=== PATIENT | female | born 1995 | race Hispanic/Latino ===

== ENCOUNTER 2019-12-12 08:26 | Inpatient (IN) | payer BC, MEDICAID ==
[~2019-12-12] VITALS: Ht 154.9 cm; Wt 83.0 kg
[2019-12-12] MEDS: LACTATED RINGERS 1000ML 1,000 ML IV PRN ×2 (09:24→13:59)
[2019-12-12] MEDS ORDERED: OXYTOCIN 10 USP UNITS/ML 20 UNIT in LACTATED RINGERS 1000ML 1,000 ML IV SCH (09:30)
[2019-12-12] MEDS ORDERED: OXYTOCIN-LR 20 UNITS/1000 ML 1,000 ML IV SCH ×2 (09:30→18:15)
[2019-12-12] MEDS ORDERED: FENTANYL CITRATE PF 50 MCG/1 ML 2ML VIAL ONE (13:45)
[2019-12-12] MEDS ORDERED: ACETAMINOPHEN-CODEINE 300/30MG TAB PO PRN (18:15)
[2019-12-12] MEDS ORDERED: WITCH HAZEL 1 PAD TP PRN (18:15)
[2019-12-12] MEDS ORDERED: MEASLES/MUMPS/RUBELLA VACCINE, LIVE 0.5 ML/VIAL SQ PRN (18:15)
[2019-12-12] MEDS ORDERED: ACETAMINOPHEN 325 MG TAB PO PRN (18:15)
[2019-12-12] MEDS ORDERED: LANOLIN 30GM OINTMENT TP PRN (18:15)
[2019-12-12] MEDS ORDERED: BENZOCAINE/LANOLIN/ALOE VERA 60 ML AEROSOL TP PRN (18:15)
[2019-12-12] MEDS ORDERED: DIPH,PERTUSS(ACELL),TET VAC/PF 0.5 ML VIAL IM PRN (18:15)
--- NOTE | 2019-12-12 20:35 | NUR ---
Patient received from Labor & Delivery; Patient came in via wheelchair accompanied by Inocencia Galaviz RN & , she has an IV of LR with 20 units Pitocin regulated at 125 ml/hour. Call light given, Plan of Care discussed with patient & , they both verbalizes understanding.
[2019-12-12] MEDS: DOCUSATE SODIUM 100 MG CAP PO SCH (20:41)
[2019-12-12] MEDS: IBUPROFEN 600 MG TABLET PO PRN (20:42)
[2019-12-12 20:50] VITALS: BP 132/74; PULSE 69; RESP 18; TEMP 98.1
[2019-12-12 23:47] VITALS: BP 108/58; PULSE 68; RESP 18; TEMP 98.3
[2019-12-13 03:55] VITALS: BP 123/71; PULSE 78; RESP 18; TEMP 97.9
[2019-12-13 07:19] VITALS: BP 116/71; PULSE 75; RESP 18; TEMP 97.8
--- NOTE | 2019-12-13 07:45 | NUR ---
DR. TRENT ROUNDED AND DISCHARGED PATIENT TO HOME. PATIENT STABLE AND DENIES ANY PROBLEMS.
[2019-12-13] MEDS: DOCUSATE SODIUM 100 MG CAP PO SCH (09:14)
[2019-12-13] MEDS: IBUPROFEN 600 MG TABLET PO PRN (09:16)
[2019-12-13 11:41] VITALS: BP 113/64; PULSE 63; RESP 18; TEMP 98
--- NOTE | 2019-12-13 15:00 | NUR ---
DISCHARGE INSTRUCTIONS GIVEN AND PATIENT VERBALIZED UNDERSTANDING INSTRUCTIONS GIVEN AND NEED TO TAKE MOTRIN OVER THE COUNTER NEEDED FOR PAIN. DOSAGE AND FREQUENCY EXPLAINED AND VERBALIZED UNDERSTANDING.
[2019-12-13 16:48] VITALS: BP 132/91; PULSE 70; RESP 18; TEMP 97.9
--- NOTE | 2019-12-13 18:55 | NUR ---
PATIENT TAKEN VIA W/C TO FAMILY VEHICLE AND PATIENT STABLE AND DENIES PAIN. APRIL CARRIED BABY IN ARMS AND WAS DISCHARGED TO SPOUSE.
== END 2019-12-13 18:55 | disposition home or self-care (01) | DRG 807 ==
LOC: EDH 08:26 → LDH 08:27 → OBSVTOIN 08:27 → WSH 20:35
PROVIDERS: ADMIT Specialist; ATTEND Specialist
PROC: 10E0XZZ Delivery of Products of Conception, External Approach (ICD-10-PCS; principal; 2019-12-12)
PROC: 0W8NXZZ Division of Female Perineum, External Approach (ICD-10-PCS; 2019-12-12)
PROC: 3E0R3BZ Introduction of Anesthetic Agent into Spinal Canal, Percutaneous Approach (ICD-10-PCS; 2019-12-12)
PROC: 00HU33Z Insertion of Infusion Device into Spinal Canal, Percutaneous Approach (ICD-10-PCS; 2019-12-12)
PROC: 3E0234Z Introduction of Serum, Toxoid and Vaccine into Muscle, Percutaneous Approach (ICD-10-PCS; 2019-12-12)
PROC: 3E0134Z Introduction of Serum, Toxoid and Vaccine into Subcutaneous Tissue, Percutaneous Approach (ICD-10-PCS; 2019-12-12)
DX: O99.62 Diseases of the digestive system complicating childbirth (principal); Z37.0 Single live birth; Z23 Encounter for immunization; K21.9 Gastro-esophageal reflux disease without esophagitis; Z3A.38 38 weeks gestation of pregnancy